=== PATIENT | male | born 1995 | race Caucasian/White ===

== ENCOUNTER 2017-10-12 07:24 | Emergency (ER) | payer SELFPAY ==
[2017-10-12 07:28] VITALS: BP 130/87; PULSE 111; RESP 17; TEMP 98; O2SAT 99
[2017-10-12] MEDS ORDERED: Lidocaine 1%/Epinephrine 1:100000 30 ml vial IJ STA (07:50)
--- NOTE | 2017-10-12 07:52 | C.PDOC ---
History Of Present Illness 21 yo male, presetns with forehead laceration afte rhe fell 6 stairs. pt slipped on water. only c/o of pain to area of laceration. no cp, sob, abd pain, extremity pain, n/v, loc. - HPI Time Seen by Provider: 10/12/17 07:47 Chief Complaint (Nursing): Trauma Past Medical History Reviewed: Historical Data, Nursing Documentation, Vital Signs Vital Signs: Last Vital Signs Temp 98.0 F 10/12/17 07:28 Pulse 111 H 10/12/17 07:28 Resp 17 10/12/17 07:28 BP 130/87 10/12/17 07:28 Pulse Ox 99 10/12/17 08:33 - Medical History PMH: Asthma Family History: States: Unknown Family Hx - Social History Hx Alcohol Use: Yes Hx Substance Use: Yes - Immunization History Hx Tetanus Toxoid Vaccination: (unk) Hx Influenza Vaccination: No Hx Pneumococcal Vaccination: (unk) Review Of Systems Except As Marked, All Systems Reviewed And Found Negative. Skin: Positive for: Other (lac) Neurological: Positive for: Headache Physical Exam - Physical Exam Appears: Well, No Acute Distress Skin: Normal Color, Warm, Dry Head: Normacephalic, Laceration (laceration 3 cm, vertical forhead), Other Eye(s): bilateral: Normal Inspection, PERRL, EOMI Nose: Normal Throat: Normal Neck: Normal Cardiovascular: Rhythm Regular Respiratory: Normal Breath Sounds Gastrointestinal/Abdominal: Normal Exam Back: Normal Inspection Extremity: Normal ROM ED Course And Treatment O2 Sat by Pulse Oximetry: 99 Medical Decision Making Medical Decision Making: pt intilly agree to ct, now refuses. 4 5-0 nylon placed. return precautions advised. Disposition - Disposition Referrals: [facility] [Outside] [facility] [Outside] Wilberto Porras MD [Staff Provider] - Disposition: HOME/ ROUTINE Disposition Time: 08:19 Condition: STABLE Additional Instructions: return to er or your docto rin 5 days for removal. return immediately with any concern. you are decling any ct imaging. you are able to return at any point with any concern. Instructions: Care For Your Stitches (ED), Laceration (ED), Head Injury (ED) Forms: [facility] ([place]) - Clinical Impression Clinical Impression: Laceration, Head injury
[2017-10-12] MEDS ORDERED: Lidocaine 2% w Epi 1:100,000 Inj IJ ONE (08:00)
== END 2017-10-12 08:31 | disposition home or self-care (01) ==
LOC: C.ER 07:24
DX: S01.81XA Laceration without foreign body of other part of head, initial encounter (principal); W10.8XXA Fall (on) (from) other stairs and steps, initial encounter; Y93.89 Activity, other specified; Y92.89 Other specified places as the place of occurrence of the external cause; Z23 Encounter for immunization